=== PATIENT | male | born 1950 | race Caucasian/White ===

== ENCOUNTER → 2018-09-18 11:50 | Outpatient (CLI) | payer OTHER ==
[2018-09-18 12:36] LABS: HEMATOCRIT 30.7 % (42.0-54.0); HEMOGLOBIN 9.9 g/dL (13.5-17.5); MCH 31.5 pg (26.0-34.0); MCHC 32.2 g/dL (31.0-37.0); MCV 97.8 fL (80.0-100.0); MEAN PLATELET VOLUME 11.2 fL (7.4-10.4); PLATELET COUNT 157 10x3/uL (130-400); RBC 3.14 10x6/uL (4.20-6.10); WBC 6.3 10x3/uL (4.8-10.8)
[2018-09-18 13:01] LABS: LYMPHOCYTES 56 % (15-50); MONOCYTES 5 % (2-11); NEUTROPHILS 39 % (40-80); PLATELET ESTIMATE NORMAL
== END | disposition home or self-care (01) ==
LOC: D.LAB 11:50
PROVIDERS: Orthopaedic Surgery
DX: C91.01 Acute lymphoblastic leukemia, in remission (principal)